=== PATIENT | male | born 1965 | race Caucasian/White ===

== ENCOUNTER 2016-06-30 20:25 | Emergency (ER) | payer SELFPAY ==
[~2016-06-30] VITALS: Ht 190.5 cm; Wt 95.3 kg
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
[2016-06-30 20:35] VITALS: BP 145/81
[2016-06-30] MEDS ORDERED: CLINDAMYCIN 900MG PREMIX 50 ML IV ONE (21:15)
[2016-06-30] MEDS ORDERED: IV NORMAL SALINE 1,000ML 1,000 ML IV ONE (21:15)
[2016-06-30] MEDS ORDERED: MORPHINE SULFATE 4 MG/ML DISP.SYRIN. IV ONE (21:15)
[2016-06-30] MEDS ORDERED: IOHEXOL 300 MG/ML 75 ML VIAL. IV ONE (21:45)
[2016-06-30] MEDS ORDERED: LIDOCAINE WITH 8.4% SOD BICARB 3 ML DISP.SYRIN. IJ ONE (22:30)
[2016-06-30] MEDS ORDERED: MORPHINE SULFATE 4 MG/ML DISP.SYRIN. IM ONE (22:45)
[2016-06-30] MEDS ORDERED: MORPHINE SULFATE 2 MG/ML DISP.SYRIN. ONE (23:09)
[2016-06-30 23:26] LABS: BASO # 0.1 x10^3/uL (0.0-0.2); BASO % 1 % (0-3); EOS # 0.2 x10^3/uL (0.0-0.7); EOS % 2 % (0-3); HEMATOCRIT 39.3 % (39.0-53.0); HEMOGLOBIN 13.1 g/dL (13.0-17.5); LYMPH # 3.1 x10^3/uL (1.0-4.8); LYMPH % 23 % (24-48); MEAN CORPUSCULAR HEMOGLOBIN 31 pg (25-35); MEAN CORPUSCULAR HGB CONC 33 g/dL (31-37); MEAN CORPUSCULAR VOLUME 91 fL (79-100); MONO # 1.2 x10^3/uL (0.0-1.1); MONO % 9 % (0-9); NEUT % 66 % (31-73); PLATELET COUNT 210 x10^3/uL (140-400); RED BLOOD COUNT 4.31 x10^6/uL (4.30-5.70); RED CELL DISTRIBUTION WIDTH 12.8 % (11.5-14.5); WHITE BLOOD COUNT 13.7 x10^3/uL (4.0-11.0)
[2016-06-30] MEDS ORDERED: MORPHINE SULFATE 2 MG/ML DISP.SYRIN. IV ONE (23:30)
[2016-06-30 23:38] LABS: ALBUMIN 3.3 g/dL (3.4-5.0); ALBUMIN/GLOBULIN RATIO 0.8 (1.0-1.7); CALCIUM 8.1 mg/dL (8.5-10.1); CREATININE 0.8 mg/dL (0.7-1.3); GFR 102.3; POTASSIUM 3.4 mmol/L (3.5-5.1); TOTAL BILIRUBIN 0.4 mg/dL (0.2-1.0); TOTAL PROTEIN 7.3 g/dL (6.4-8.2)
--- NOTE | 2016-07-01 00:13 | RAD ---
PROCEDURE CT soft tissue neck with contrast HISTORY Left dental extraction 4 days ago now with severe mouth pain and swelling and neck swelling TECHNIQUE Exposure: One or more of the following individualized dose reduction techniques were utilized for this exam: 1. Automated exposure control. 2. Adjustment of the mA and/or kV according to patient size. 3. Use of iterative reconstruction technique. 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 There is soft tissue swelling and edema overlying the left mandible body anterior of the mental symphysis and thickening of the platysma of and stranding at the submandibular space. There is no soft tissue abscess evident. There is mild left submandibular asymmetric lymph nodes largest of which measures short axis diameter 1.1 centimeters likely reactive lymph nodes are lymphadenitis. No discrete mucosal thickening or mass of the nasopharynx, oral cavity, hypopharynx or larynx. Thyroid gland and salivary glands are unremarkable. Apical pulmonary emphysema with a large left apical bulla. Numerous absent maxillary and mandible teeth. Probable recent dental extraction of the mandible incisors. IMPRESSION 1. Recent dental extraction of the mandible incisors. There is soft tissue swelling anterior and left lateral of the mandible and within the submandibular space likely cellulitis. No abscess evident. There is mild lymphadenitis at the left submandibular region. 2. Apical emphysema with a large left apical lucent bulla which extends outside the field of view. Correlation with chest x-ray is advised to confirm a large bulla. Electronically signed by: Jose Miller MD (July 01, 2016 00:11:59)
[2016-07-01] MEDS ORDERED: HYDR-971 PO (00:45)
[2016-07-01] MEDS ORDERED: AMOXICILLIN/K CLAV 875/125MG TABLET. PO ONE (00:45)
[2016-07-01] MEDS ORDERED: AMOX1TAB61 PO (00:45)
== END 2016-07-01 01:00 | disposition home or self-care (01) ==
LOC: ER 20:33
DX: L03.211 Cellulitis of face (principal); Z88.1 Allergy status to other antibiotic agents; Z88.6 Allergy status to analgesic agent
CPT/HCPCS: 36415; 70491; 80053; 85027; 96372; 99285; J2270; Q9967